=== PATIENT | male | born 1965 | race American Indian/Alaskan Native ===

== ENCOUNTER 2017-01-21 10:28 | Emergency (ER) | payer SELFPAY ==
--- NOTE | 2017-01-21 11:09 | Emergency Department Report ---
Chief Complaint: High BP Stated Complaint: HBP Time Seen by Provider: 01/21/17 11:06 - HPI History of Present Illness: PT states he was recently dx with htn. PT states he is currently not on any bp medication. PT reports headache x 3 days. PT states he has been going to clinic to have bp checked. pt was sent to ED for evaluation - ROS Review of Systems: + headache - chest pain - ble edema - Exam Vital Signs: Vital Signs 01/21/17 11:01 Temperature 98.4 F Pulse Rate 67 Respiratory 16 Rate Blood Pressure 178/132 O2 Sat by Pulse 99 Oximetry Physical Exam: PT is alert and appropriate no focal weakness noted in triage MSE screening note: Focused history and physical exam performed. Due to findings the following was ordered: ekg, labs, ct ED Disposition for MSE Condition: Stable
[2017-01-21] MEDS ORDERED: CATAPRES PO ONE (11:44)
[2017-01-21] MEDS ORDERED: TYLENOL PO ONE (11:44)
--- NOTE | 2017-01-21 11:47 | Emergency Department Report ---
ED Headache HPI - General Chief Complaint: High BP Stated Complaint: HBP Time Seen by Provider: 01/21/17 11:06 Source: patient - History of Present Illness Timing/Duration: 24 hours Quality: moderate Head Injury Location: frontal Associated Symptoms: denies: fever/chills, loss of consciousness, nausea/ vomiting, nasal drainage, stiff neck Allergies/Adverse Reactions: Allergies No Known Allergies Allergy (Verified 01/21/17 11:04) Home Medications: Ambulatory Orders amLODIPine [Norvasc] 5 mg PO DAILY #30 tab 01/21/17 ED Review of Systems ROS: Stated complaint: HBP Other details as noted in HPI Comment: All other systems reviewed and negative Constitutional: denies: chills, fever Respiratory: shortness of breath Cardiovascular: chest pain Gastrointestinal: denies: abdominal pain, nausea, vomiting Neurological: headache. denies: weakness, numbness, paresthesias, confusion, abnormal gait ED Past Medical Hx - Past Medical History Previous Medical History?: Yes Hx Hypertension: Yes Hx Psychiatric Treatment: Yes (depression) - Surgical History Past Surgical History?: No - Social History Smoking Status: Never Smoker Substance Use Type: None - Medications Home Medications: Home Medications Medication Instructions Recorded Confirmed Last Taken Type amLODIPine [Norvasc] 5 mg PO DAILY #30 tab 01/21/17 Unknown Rx ED Physical Exam - General Limitations: No Limitations General appearance: alert, in no apparent distress - Head Head exam: Present: atraumatic - Eye Eye exam: Present: normal appearance - ENT ENT exam: Present: normal exam - Neck Neck exam: Present: normal inspection - Respiratory Respiratory exam: Present: normal lung sounds bilaterally. Absent: respiratory distress, wheezes, rales, rhonchi, chest wall tenderness - Cardiovascular Cardiovascular Exam: Present: regular rate, normal rhythm, normal heart sounds - GI/Abdominal GI/Abdominal exam: Present: soft. Absent: distended, tenderness, guarding, rebound, rigid, mass, bruit, pulsatile mass - Back Exam Back exam: Present: normal inspection. Absent: CVA tenderness (R), CVA tenderness (L) - Neurological Exam Neurological exam: Present: alert, oriented X3, CN II-XII intact - Skin Skin exam: Present: warm, normal color ED Course Vital Signs 01/21/17 01/21/17 01/21/17 11:01 11:12 11:21 Temperature 98.4 F Pulse Rate 67 68 77 Respiratory 16 16 12 Rate Blood Pressure 178/132 170/104 O2 Sat by Pulse 99 98 99 Oximetry 01/21/17 01/21/17 01/21/17 11:31 11:41 11:44 Temperature Pulse Rate 56 L 66 Respiratory 11 L 12 16 Rate Blood Pressure 168/102 168/102 O2 Sat by Pulse 99 97 Oximetry 01/21/17 01/21/17 11:51 12:02 Temperature Pulse Rate 65 Respiratory 14 Rate Blood Pressure 144/87 144/87 O2 Sat by Pulse 96 Oximetry - Reevaluation(s) Reevaluation #1: 01/21/17 13:15 Blood pressure improved in the ER CT head came back negative is no bleeding I will prescribe him norvasc. Last 10 mg ask him to follow-up with his primary care physician ED Medical Decision Making - Lab Data Result diagrams: 01/21/17 11:27 01/21/17 11:27 Critical care attestation.: If time is entered above; I have spent that time in minutes in the direct care of this critically ill patient, excluding procedure time. ED Disposition Clinical Impression: Headache, Hypertension Disposition: DC-01 TO HOME OR SELFCARE Is pt being admited?: No Condition: Stable Instructions: Hypertension (ED)
[2017-01-21 12:03] LABS: Basophils % (Auto) 0.9 % (0.0-1.8); Eosinophils % (Auto) 2.9 % (0.0-4.3); Hematocrit 43.7 % (35.5-45.6); Hemoglobin 14.5 gm/dl (11.8-15.2); Mean Corpuscular HGB Conc 33 % (32-34); Mean Corpuscular Hemoglobin 27 pg (28-32); Mean Corpuscular Volume 81 fl (84-94); Platelet Count 301 K/mm3 (140-440); Red Blood Count 5.43 M/mm3 (3.65-5.03); Red Cell Distribution Width 13.5 % (13.2-15.2); White Blood Count 7.8 K/mm3 (4.5-11.0)
[2017-01-21 12:20] LABS: Anion Gap 17 mmol/L; BUN/Creatinine Ratio 13.33; Blood Urea Nitrogen 16 mg/dL (9-20); Calcium 9.8 mg/dL (8.4-10.2); Carbon Dioxide 27 mmol/L (22-30); Chloride 101.5 mmol/L (98-107); Glucose 97 mg/dL (75-100); Potassium 4.5 mmol/L (3.6-5.0); Sodium 141 mmol/L (137-145)
--- NOTE | 2017-01-21 12:48 | XRay Report ---
AP CHEST: HISTORY: chest pain AP view of the chest demonstrates a normal mediastinal and cardiac contour with clear lungs and normal bony and soft tissue structures. IMPRESSION: No acute cardiopulmonary process appreciated.
--- NOTE | 2017-01-21 12:52 | Cat Scan Report ---
CT HEAD WITHOUT CONTRAST: HISTORY: Headache, hypertension. Serial contiguous axial images were obtained through the cranium. Intravenous contrast material was not administered. The ventricles are normal in size and appearance. There is no mass effect or midline shift. No areas of abnormally increased or decreased attenuation are seen. No mass lesion is seen. The mastoid air cells and visualized portions of the sinuses are normal. IMPRESSION: Cranial CT scan within normal limits.
[2017-01-21 13:29] VITALS: BP 168/99
== END 2017-01-21 13:30 | disposition home or self-care (01) ==
LOC: ED 10:28
DX: I10 Essential (primary) hypertension (principal)
CPT/HCPCS: 36415; 70450; 71010; 80048; 83880; 85025; 93005; 93010; 99284

== ENCOUNTER 2020-06-20 11:33 | Emergency (ER) | payer SELFPAY ==
[2020-06-20] MEDS ORDERED: LIDOCAINE (1%) 10 MG/1 ML VIAL 20 ML MDV INFILTRATI ONE (12:00)
[2020-06-20] MEDS ORDERED: DIPHtheria,PERTUSSIS(ACELL),TETANUS VACCINE/PF 0.5 ML VIAL IM ONE (12:00)
--- NOTE | 2020-06-20 12:01 | Event Note ---
ED Screening Note Date of service: 06/20/20 Time: 12:01 ED Screening Note: Patient complains of laceration to right lower leg today States fell backwards and cut it on broken glass from a table Unsure of last tetanus vaccine This initial assessment/diagnostic orders/clinical plan/treatment(s) is/are subject to change based on patients health status, clinical progression and re- assessment by fellow clinical providers in the ED. Further treatment and workup at subsequent clinical providers discretion. Patient/guardian urged not to elope from the ED as their condition may be serious if not clinically assessed and managed. Initial orders include: Boostrix X-ray
[2020-06-20] MEDS ORDERED: ACETAMINOPHEN 325 MG TAB PO ONE (12:33)
[2020-06-20 14:01] LABS: Basophils # (Auto) 0.1 K/mm3 (0.0-0.1); Basophils % (Auto) 0.8 % (0.0-1.8); Eosinophils # (Auto) 0.1 K/mm3 (0.0-0.4); Eosinophils % (Auto) 1.5 % (0.0-4.3); Hematocrit 44.6 % (35.5-45.6); Hemoglobin 14.3 gm/dl (11.8-15.2); Lymphocytes # (Auto) 2.4 K/mm3 (1.2-5.4); Lymphocytes % (Auto) 33.6 % (13.4-35.0); Mean Corpuscular HGB Conc 32 % (32-34); Mean Corpuscular Volume 84 fl (84-94); Monocytes # (Auto) 0.4 K/mm3 (0.0-0.8); Monocytes % (Auto) 5.7 % (0.0-7.3); Platelet Count 283 K/mm3 (140-440); Red Cell Distribution Width 14.1 % (13.2-15.2)
[2020-06-20 14:18] LABS: Alanine Aminotransferase 31 units/L (7-56); Albumin 4.2 g/dL (3.9-5); BUN/Creatinine Ratio 10; Blood Urea Nitrogen 12 mg/dL (9-20); Calcium 9.4 mg/dL (8.4-10.2); Hemolysis Index 5
--- NOTE | 2020-06-20 15:08 | Emergency Department Report ---
ED General Adult HPI - General Chief complaint: High BP Stated complaint: HIGH BLOOD PRESSURE Time Seen by Provider: 06/20/20 12:00 Source: patient Mode of arrival: Ambulatory Limitations: No Limitations - History of Present Illness Initial comments: Patient is 54 yo male presented to the ER complaining of elevated high blood pressure for the last few days. He also c/o headache. Patient denied any weakness or chest pain. Patient also denied any shortness of breath. Patient stated that he is out of his medication for a while. Patient denied any neck pain, fever or chills. - Related Data Previous Rx's Medication Instructions Recorded Last Taken Type amLODIPine [Norvasc] 5 mg PO DAILY #30 tab 01/21/17 Unknown Rx amLODIPine 10 mg PO DAILY #30 tab 06/20/20 Unknown Rx Allergies Allergy/AdvReac Type Severity Reaction Status Date / Time No Known Allergies Allergy Verified 01/21/17 11:04 ED Review of Systems ROS: Stated complaint: HIGH BLOOD PRESSURE Other details as noted in HPI Comment: All other systems reviewed and negative Respiratory: denies: cough, shortness of breath, SOB with exertion Cardiovascular: denies: chest pain, palpitations Gastrointestinal: denies: abdominal pain, nausea Musculoskeletal: denies: back pain Neurological: headache. denies: weakness, numbness, paresthesias, confusion, abnormal gait ED Past Medical Hx - Past Medical History Previous Medical History?: Yes Hx Hypertension: Yes Hx Psychiatric Treatment: Yes (depression) - Social History Smoking Status: Current Some Day Smoker - Medications Home Medications: Home Medications Medication Instructions Recorded Confirmed Last Taken Type amLODIPine [Norvasc] 5 mg PO DAILY #30 tab 01/21/17 Unknown Rx amLODIPine 10 mg PO DAILY #30 tab 06/20/20 Unknown Rx ED Physical Exam - General Limitations: No Limitations General appearance: alert, in no apparent distress - Head Head exam: Present: atraumatic, normocephalic, normal inspection - Eye Eye exam: Present: normal appearance - ENT ENT exam: Present: normal exam, normal orophraynx, mucous membranes moist - Neck Neck exam: Present: normal inspection, full ROM. Absent: tenderness, meningismus - Respiratory Respiratory exam: Present: normal lung sounds bilaterally - Cardiovascular Cardiovascular Exam: Present: regular rate, normal rhythm, normal heart sounds - GI/Abdominal GI/Abdominal exam: Present: soft, normal bowel sounds. Absent: distended, tenderness, guarding, rebound, rigid, mass, bruit, pulsatile mass, hernia - Extremities Exam Extremities exam: Present: normal inspection, full ROM, normal capillary refill. Absent: tenderness - Back Exam Back exam: Present: normal inspection - Neurological Exam Neurological exam: Present: alert, oriented X3, CN II-XII intact, normal gait, reflexes normal. Absent: motor sensory deficit - Psychiatric Psychiatric exam: Present: normal mood - Skin Skin exam: Present: warm, intact, normal color ED Course Vital Signs 06/20/20 06/20/20 12:32 17:16 Temperature 98.1 F Pulse Rate 65 77 Respiratory 18 16 Rate Blood Pressure 162/90 Blood Pressure 178/113 [Left] O2 Sat by Pulse 100 92 Oximetry ED Medical Decision Making - Lab Data Result diagrams: 06/20/20 13:31 06/20/20 13:31 Critical care attestation.: If time is entered above; I have spent that time in minutes in the direct care of this critically ill patient, excluding procedure time. ED Disposition Clinical Impression: Malignant hypertension, Headache Disposition: - TO HOME OR SELFCARE Is pt being admited?: No Condition: Stable Instructions: Hypertension, Adult, [id number], Managing Your Hypertension, Hypertension (ED) Prescriptions: amLODIPine 10 mg PO DAILY #30 tab Referrals: PRIMARY CARE, [Primary Care Provider] - 3-5 Days [facility] [Provider Group] - 3-5 Days Forms: Work/School Release Form(ED)
[2020-06-20 17:17] VITALS: BP 178/113
== END 2020-06-20 15:25 | disposition home or self-care (01) ==
LOC: ED 11:33
DX: I10 Essential (primary) hypertension (principal); R51.9 Headache, unspecified; F32.9 Major depressive disorder, single episode, unspecified; F17.200 Nicotine dependence, unspecified, uncomplicated; Z79.899 Other long term (current) drug therapy
CPT/HCPCS: 36415; 80053; 85025

== ENCOUNTER 2020-10-19 12:25 | Emergency (ER) | payer SELFPAY ==
--- NOTE | 2020-10-19 15:33 | XRay Report ---
LEFT FINGER(S) 3 VIEW(S) INDICATION / CLINICAL INFORMATION: left thumb pain . [place] a pull and a pop while lifting heavy bag, s welling and pain for 3 days. COMPARISON: None available. FINDINGS: BONES / JOINT(S): No acute fracture or subluxation. 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 SOFT TISSUES: No significant abnormality. ADDITIONAL FINDINGS: None. Signer Name: Jamal Mtz MD Signed: 10/19/2020 3:29 PM Workstation Name: [id number]
--- NOTE | 2020-10-19 16:16 | Emergency Department Report ---
ED Upper Extremity Inj HPI - General Chief Complaint: Extremity Injury, Upper Stated Complaint: LT DISLOCATED THUMB Time Seen by Provider: 10/19/20 13:54 Source: patient Mode of arrival: Ambulatory Limitations: No Limitations - History of Present Illness Initial Comments: This is a 55-year-old male nontoxic, well nourished in appearance, no acute signs of distress presents to the ED with c/o of left thumb pain several days. Patient stated that a shopping bag pushed his finger backwards. Patient denies any other injuries or trauma. Patient denies any numbness, tingling, fever, chills, nausea, vomiting, chest pain, shortness of breath, headache, stiff neck. Patient denies any joint swelling or joint redness. Patient stated has some decreased range of motion due to pain. Patient denies any allergies or significant past medical history. MD Complaint: Injury to:: left, finger -: days(s) Other Extremity Injury: Fingers: Left Other Injuries: none Improves With: none Worsens With: none Associated Symptoms: denies other symptoms. denies: weakness, numbness, neck pain, suspects foreign body, nausea/vomiting, heard/felt popping sensat - Related Data Previous Rx's Medication Instructions Recorded Last Taken Type amLODIPine [Norvasc] 5 mg PO DAILY #30 tab 01/21/17 Unknown Rx amLODIPine 10 mg PO DAILY #30 tab 06/20/20 Unknown Rx Naproxen 500 mg PO Q12H PRN #12 tablet 10/19/20 Unknown Rx Allergies Allergy/AdvReac Type Severity Reaction Status Date / Time No Known Allergies Allergy Verified 10/19/20 13:16 ED Review of Systems ROS: Stated complaint: LT DISLOCATED THUMB Other details as noted in HPI Comment: All other systems reviewed and negative Constitutional: denies: chills, fever Eyes: denies: eye pain, eye discharge, vision change ENT: denies: ear pain, throat pain Respiratory: denies: cough, shortness of breath, wheezing Cardiovascular: denies: chest pain, palpitations Endocrine: no symptoms reported Gastrointestinal: denies: abdominal pain, nausea, diarrhea Genitourinary: denies: urgency, dysuria Musculoskeletal: denies: back pain, joint swelling, arthralgia Skin: denies: rash, lesions Neurological: denies: headache, weakness, paresthesias Psychiatric: denies: anxiety, depression Hematological/Lymphatic: denies: easy bleeding, easy bruising ED Past Medical Hx - Past Medical History Hx Hypertension: Yes Hx Psychiatric Treatment: Yes (depression) - Surgical History Past Surgical History?: No - Social History Smoking Status: Never Smoker Substance Use Type: None - Medications Home Medications: Home Medications Medication Instructions Recorded Confirmed Last Taken Type amLODIPine [Norvasc] 5 mg PO DAILY #30 tab 01/21/17 Unknown Rx amLODIPine 10 mg PO DAILY #30 tab 06/20/20 Unknown Rx Naproxen 500 mg PO Q12H PRN #12 tablet 10/19/20 Unknown Rx ED Physical Exam - General Limitations: No Limitations General appearance: alert, in no apparent distress - Head Head exam: Present: atraumatic, normocephalic - Eye Eye exam: Present: normal appearance - Neck Neck exam: Present: normal inspection, full ROM - Respiratory Respiratory exam: Absent: respiratory distress - Cardiovascular Cardiovascular Exam: Present: regular rate - Extremities Exam Extremities exam: Present: normal inspection, full ROM, tenderness, normal capillary refill. Absent: joint swelling - Expanded Upper Extremity Exam Left General: Present: normal inspection Shoulder Exam: Present: normal inspection, full ROM. Absent: tenderness, swelling, abrasion Upper Arm exam: Present: normal inspection, full ROM. Absent: tenderness, swelling Elbow exam: Present: normal inspection. Absent: tenderness, swelling Forearm Wrist exam: Present: normal inspection, full ROM. Absent: tenderness, swelling, abrasion, laceration, ecchymosis, deformity, dislocation, erythema, tenderness over anatomical snuff box, pain with axial thumb loading Hand Wrist exam: Present: normal inspection, full ROM, tenderness, swelling. Absent: abrasion, laceration, ecchymosis, deformity, crepidus, dislocation, erythema, amputation, nail avulsion, subungual hematoma Vascular: Present: normal capillary refill. Absent: vascular compromise (Neurovascular within normal limits) - Back Exam Back exam: Present: normal inspection, full ROM - Neurological Exam Neurological exam: Present: alert, oriented X3, normal gait - Psychiatric Psychiatric exam: Present: normal affect, normal mood - Skin Skin exam: Present: warm, dry, intact, normal color. Absent: rash ED Course Vital Signs 10/19/20 13:19 Temperature 98.1 F Pulse Rate 81 Respiratory 22 Rate Blood Pressure 151/109 O2 Sat by Pulse 92 Oximetry - Reevaluation(s) Reevaluation #1: 10/19/20 16:13 Patient is speaking in full sentences with no signs of distress noted. ED Medical Decision Making - Medical Decision Making [facility] [address] [place] [address] XRay Report Signed Patient: STACEY SOSA MR#: [id number] 43 : 1965 Acct:[id number] Age/Sex: 55 / M ADM Date: 10/19/20 Loc: ED Attending Dr: Ordering Physician: MICHEAL DAVID NP Date of Service: 10/19/20 Procedure(s): XR finger(s) 2+V LT Accession Number(s): [id number] cc: MICHEAL DAVID NP Fluoro Time In Minutes: LEFT FINGER(S) 3 VIEW(S) INDICATION / CLINICAL INFORMATION: left thumb pain . [place] a pull and a pop while lifting heavy bag, swelling and pain for 3 days. COMPARISON: None available. FINDINGS: BONES / JOINT(S): No acute fracture or subluxation. 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 SOFT TISSUES: No significant abnormality. ADDITIONAL FINDINGS: None. Signer Name: Jamal Mtz MD Signed: 10/19/2020 3:29 PM Workstation Name: [id number] Transcribed By: DT Dictated By: Lee Mtz MD Electronically Authenticated By: Lee Mtz MD Signed Date/Time: 10/19/20 1529 DD/ 1527 TD/TT: This is a 55-year-old male that presents with left thumb strain. Patient is stable and was examined by me. X-ray has been obtained and dictated by the radiologist. Patient is notified of the x-ray report with noted by the patient. Patient does have normal gait with no tenderness and no joint swelling. No ecchymosis. no joint redness or swelling. Not warm to touch. No signs of cellulites present. Patient was instructed to RICE therapy. Patient is discharged with Motrin. At time of discharge, the patient does not seem toxic or ill in appearance. No acute signs of distress noted. Patient agrees to discharge treatment plan of care. No further questions noted by the patient. Critical care attestation.: If time is entered above; I have spent that time in minutes in the direct care of this critically ill patient, excluding procedure time. ED Disposition Clinical Impression: Strain of left thumb Disposition: DC-01 TO HOME OR SELFCARE Is pt being admited?: No Does the pt Need Aspirin: No Condition: Stable Instructions: RICE Therapy for Routine Care of Injuries, Dool-zh-[id number] Additional Instructions: Follow-up with a orthopedic doctor in 3-5 days or if symptoms worsen and continue return to emergency room as soon as possible. No physical activity that extremity until cleared by orthopedic doctor Prescriptions: Naproxen 500 mg PO Q12H PRN #12 tablet PRN Reason: Pain , Severe (7-10) Referrals: PRIMARY CARE, [Primary Care Provider] - 3-5 Days FLORIAN MEAD MD [Staff Physician] - 3-5 Days Forms: Work/School Release Form(ED) Time of Disposition: 16:22
[2020-10-19 16:30] VITALS: BP 150/96
== END 2020-10-19 16:34 | disposition home or self-care (01) ==
LOC: ED 12:25
DX: S56.312A Strain of extensor or abductor muscles, fascia and tendons of left thumb at forearm level, initial encounter (principal); I10 Essential (primary) hypertension; F32.9 Major depressive disorder, single episode, unspecified; Z79.899 Other long term (current) drug therapy; X58.XXXA Exposure to other specified factors, initial encounter; Y93.89 Activity, other specified; Y92.89 Other specified places as the place of occurrence of the external cause; Y99.8 Other external cause status